=== PATIENT | female | born 1985 | race Native Hawaiian/Other Pacific Islander ===

== ENCOUNTER 2017-03-09 08:24 | Emergency (ER) | payer BC, OTHER ==
[~2017-03-09] VITALS: Ht 152.4 cm; Wt 79.4 kg
[2017-03-09] MEDS ORDERED: PANTOPRAZOLE SODIUM 40 MG VIAL IV ONE (09:15)
[2017-03-09 09:18] LABS: BASOPHILS # (AUTO) 0.1 K/uL (0.0-8.0); EOSINOPHILS # (AUTO) 0.3 K/uL (0.0-0.7); EOSINOPHILS % (AUTO) 5.3 % (0.0-7.0); HEMATOCRIT 37.1 % (31.2-41.9); HEMOGLOBIN 12.4 g/dL (10.9-14.3); LYMPHOCYTES # (AUTO) 2.9 K/uL (20.0-40.0); MEAN CORPUSCULAR HEMOGLOBIN 28.7 uug (24.7-32.8); MEAN CORPUSCULAR HGB CONC 34 g/dL (32.3-35.6); MEAN CORPUSCULAR VOLUME 85.6 fL (75.5-95.3); MONOCYTES # (AUTO) 0.4 K/uL (2.0-10.0); MONOCYTES % (AUTO) 7.1 % (0.0-11.0); NEUTROPHILS # (AUTO) 2.1 K/uL (1.8-8.9); NEUTROPHILS % (AUTO) 36.6 % (38.5-71.5); PLATELET COUNT (AUTO) 335 K/uL (179-408); RED BLOOD CELL COUNT(AUTO) 4.34 MIL/uL (3.63-4.92); WHITE BLOOD COUNT (AUTO) 5.8 K/uL (3.8-11.8)
[2017-03-09 09:27] LABS: CREATININE 0.7 mg/dL (0.6-1.3)
[2017-03-09 09:39] LABS: BILIRUBIN,DIRECT 0.1 mg/dL (0.0-0.2); BILIRUBIN,TOTAL 0.5 mg/dL (0.2-1.0); TOTAL PROTEIN, SERUM 7.4 g/dL (6.4-8.2)
[2017-03-09] MEDS ORDERED: PANTOPRAZOLE SODIUM 40 MG VIAL ONE (09:39)
--- NOTE | 2017-03-09 10:08 | NUR ---
Pt resting in rminden with NAD noted at this time.
--- NOTE | 2017-03-09 12:50 | NUR ---
IV removed. Catheter intact and site benign. Pressure and 4x4 gauze applied to site. No bleeding noted.
--- NOTE | 2017-03-09 12:53 | NUR ---
Patient discharged to home in stable conditon. Written and verbal after care instructions given. Patient verbalizes understanding of instructions.
== END 2017-03-09 12:55 | disposition home or self-care (01) ==
LOC: ER 08:24
DX: K21.9 Gastro-esophageal reflux disease without esophagitis (principal)
CPT/HCPCS: 36415; 70030-TC; 71010; 84703; 85025; 85730; 93005; A4663; C9113

== ENCOUNTER 2017-03-30 10:21 | Outpatient (CLI) | payer BC, OTHER ==
[2017-03-30 11:10] LABS: BASOPHILS % (AUTO) 0.7 % (0.0-2.0); EOSINOPHILS # (AUTO) 0.2 K/uL (0.0-0.7); HEMATOCRIT 39.2 % (31.2-41.9); HEMOGLOBIN 13.4 g/dL (10.9-14.3); LYMPHOCYTES # (AUTO) 2.6 K/uL (20.0-40.0); LYMPHOCYTES % (AUTO) 42.7 % (20.5-51.5); MEAN CORPUSCULAR HEMOGLOBIN 29.4 uug (24.7-32.8); MEAN CORPUSCULAR HGB CONC 34 g/dL (32.3-35.6); MONOCYTES # (AUTO) 0.3 K/uL (2.0-10.0); MONOCYTES % (AUTO) 5.6 % (0.0-11.0); NEUTROPHILS # (AUTO) 2.9 K/uL (1.8-8.9); PLATELET COUNT (AUTO) 341 K/uL (179-408); RED BLOOD CELL COUNT(AUTO) 4.56 MIL/uL (3.63-4.92); WHITE BLOOD COUNT (AUTO) 6.1 K/uL (3.8-11.8)
[2017-03-31 05:06] LABS: THYROID PEROXIDASE (TPO) AB 12 IU/mL (0-34)
== END 2017-03-30 23:59 | disposition home or self-care (01) ==
LOC: LAB 10:21
DX: Z09 Encounter for follow-up examination after completed treatment for conditions other than malignant neoplasm (principal)
CPT/HCPCS: 36415; 84443; 85025

== ENCOUNTER 2017-11-25 07:26 | Outpatient (CLI) | payer BC, OTHER ==
[2017-11-26 06:06] LABS: HEPATITIS A AB, TOTAL Positive (Negative); HEPATITIS B SURFACE AB Non Reactive (.); HEPATITIS B SURFACE AG Negative (Negative)
== END 2017-11-25 23:59 | disposition home or self-care (01) ==
LOC: LAB 07:26
DX: B19.10 Unspecified viral hepatitis B without hepatic coma (principal)
CPT/HCPCS: 36415; 86706; 86708; 87340

== ENCOUNTER 2017-12-02 07:44 | Outpatient (CLI) | payer BC, OTHER ==
[2017-12-03 07:05] LABS: HEPATITIS B SURFACE AB Non Reactive (.); HEPATITIS B SURFACE AG Negative (Negative)
[2017-12-03 08:07] LABS: RUBELLA AB, IgG 9.56 index (Immune >0.99)
[2017-12-03 09:07] LABS: VARICELLA ZOSTER IgG 1279 index (Immune >165)
== END 2017-12-02 23:59 | disposition home or self-care (01) ==
LOC: LAB 07:44
PROVIDERS: ATTEND Internal Medicine
DX: Z00.00 Encounter for general adult medical examination without abnormal findings (principal)
CPT/HCPCS: 36415; 86706; 87340

== ENCOUNTER 2018-05-31 07:20 | Emergency (ER) | payer BC, OTHER ==
[~2018-05-31] VITALS: Ht 152.4 cm; Wt 81.6 kg
--- NOTE | 2018-05-31 07:26 | NUR ---
[facility] [place] AT BEDSIDE FOR MSE.
--- NOTE | 2018-05-31 07:35 | NUR ---
Patient discharged to home in stable conditon. Written and verbal after care instructions given. Patient verbalizes understanding of instructions. PT D/C W/ PRESCRIPTIONS. ALL BELONGINGS W/ PT. PT SELF-AMBULATED W/O DIFFICULTY.
[2018-05-31 07:37] VITALS: BP 118/80
== END 2018-05-31 07:38 | disposition home or self-care (01) ==
LOC: ER 07:20
DX: J40 Bronchitis, not specified as acute or chronic (principal); K21.9 Gastro-esophageal reflux disease without esophagitis
CPT/HCPCS: A4663

== ENCOUNTER 2019-09-05 11:04 | Outpatient (CLI) | payer BC, OTHER ==
[2019-09-06 05:07] LABS: HEPATITIS A AB, IgM Negative (Negative); HEPATITIS B SURFACE AG Negative (Negative)
== END 2019-09-05 23:59 | disposition home or self-care (01) ==
LOC: LAB 11:04
DX: K75.9 Inflammatory liver disease, unspecified (principal)
CPT/HCPCS: 36415; 86705; 86709; 86803

== ENCOUNTER 2020-05-21 08:25 | Outpatient (CLI) | payer BC, OTHER | END 2020-05-21 23:59 | disposition home or self-care (01) | LOC: LAB 08:25 | DX: N97.0 Female infertility associated with anovulation (principal); Z13.29 Encounter for screening for other suspected endocrine disorder | CPT/HCPCS: 36415; 84443 ==

== ENCOUNTER 2023-05-12 13:11 | Emergency (ER) | payer BC, OTHER ==
[~2023-05-12] VITALS: Ht 152.4 cm; Wt 81.6 kg
[2023-05-12 13:49] VITALS: BP 146/97; O2SAT 99
== END 2023-05-12 13:50 | disposition home or self-care (01) ==
LOC: ER 13:11
DX: S39.81XA Other specified injuries of abdomen, initial encounter (principal); K21.9 Gastro-esophageal reflux disease without esophagitis; W50.1XXA Accidental kick by another person, initial encounter; Y93.89 Activity, other specified; Y92.89 Other specified places as the place of occurrence of the external cause; Y99.8 Other external cause status
CPT/HCPCS: A4606; A4663